=== PATIENT | male | born 1990 | race Caucasian/White ===

== ENCOUNTER → 2020-09-10 | Outpatient (REF) | payer OTHER ==
[2020-09-10 13:15] LABS: SEMEN APPEARANCE OPAQUE (OPAQUE)
[2020-09-10 13:16] LABS: SEMEN VISCOSITY LIQUID (LIQUID); SEMEN VOLUME 2.3 ml (2.0-5.0); SEMEN pH 8.5 (7.0-8.0); WBC CONCENTRATION <=1 M/ml (<=1 M/ml)
== END ==
LOC: M LAB REF 13:04
PROVIDERS: ATTEND Preventive Medicine Undersea and Hyperbaric Medicine
DX: Z30.2 Encounter for sterilization (principal)